=== PATIENT | male | born 1950 | race Asian ===

== ENCOUNTER 2020-10-24 10:34 | Day surgery (SDC) | payer MEDICARE ==
[~2020-10-24] VITALS: Ht 170.2 cm; Wt 75.0 kg
[2020-10-24] MEDS ORDERED: ROSU10TA2 PO (11:16)
[2020-10-24] MEDS ORDERED: ALLO300T PO (11:16)
[2020-10-24] MEDS ORDERED: METF500T27 PO (11:16)
[2020-10-24] MEDS ORDERED: AMLO-211 PO (11:16)
[2020-10-24] MEDS ORDERED: LOSA100T14 PO (11:16)
[2020-10-24] MEDS ORDERED: SODIUM CHLORIDE 0.9% 1,000 ML IV SCH ×2 (11:30→13:30)
[2020-10-24 11:54] VITALS: BP 155/84
[2020-10-24] MEDS ORDERED: MIDAZOLAM 1 MG/ML, 5ML ONE (11:57)
[2020-10-24] MEDS ORDERED: FENTANYL PF 100 MCG/2ML ONE (11:57)
[2020-10-24] MEDS ORDERED: VERAPAMIL 2.5 MG/ML, 2ML ONE (11:57)
[2020-10-24] MEDS ORDERED: HEPARIN 1,000 UNITS/ML, 10ML ONE (11:58)
[2020-10-24] MEDS ORDERED: LIDOCAINE-MPF 1%, 5ML ONE (11:58)
[2020-10-24 12:20] LABS: BASOPHILS % (AUTO) 1 % (0-1); EOSINOPHILS % (AUTO) 7 % (1-7); LYMPHOCYTES % (AUTO) 23 % (22-44); MD NO; MEAN CORPUSCULAR HEMOGLOBIN 29.6 pg (27.5-34.5); MEAN CORPUSCULAR HGB CONC 33.4 g/dL (33.2-36.2); MONOCYTES % (AUTO) 8 % (2-9); NEUTROPHILS % (AUTO) 61 % (42-75); PLATELET COUNT 263 x10^3/uL (130-400); RED BLOOD COUNT 5.13 x10^6/uL (4.38-5.82); RED CELL DISTRIBUTION WIDTH 13.2 % (9.4-14.8)
[2020-10-24 12:30] LABS: ANION GAP 3 mmol/L (5-15); CALCIUM 9.3 mg/dL (8.5-10.1); CHLORIDE 108 mmol/L (98-107)
[2020-10-24] MEDS ORDERED: TICAGRELOR 90 MG TABLET ONE (12:59)
[2020-10-24] MEDS ORDERED: BIVALIRUDIN 250 MG ONE (12:59)
== END 2020-10-24 15:13 | disposition home or self-care (01) ==
LOC: CACL 10:34 → EDBD 12:30 → CACL 15:13
PROVIDERS: ATTEND Internal Medicine Cardiovascular Disease
DX: I25.10 Atherosclerotic heart disease of native coronary artery without angina pectoris (principal); I10 Essential (primary) hypertension; E11.9 Type 2 diabetes mellitus without complications; Z82.49 Family history of ischemic heart disease and other diseases of the circulatory system; E78.5 Hyperlipidemia, unspecified; Z72.0 Tobacco use; Z88.8 Allergy status to other drugs, medicaments and biological substances; Z79.899 Other long term (current) drug therapy; Z98.890 Other specified postprocedural states
CPT/HCPCS: 36415; 80048; 85025; 93458; 99156; C1769; C1894; J1644; J2250; J3010; Q9967; J0583